=== PATIENT | male | born 1995 | race Caucasian/White ===

== ENCOUNTER 2019-06-16 19:22 | Emergency (ER) | payer OTHER ==
[~2019-06-16] VITALS: Ht 185.4 cm; Wt 113.4 kg
[2019-06-16 19:35] VITALS: BP 114/83
== END 2019-06-16 21:20 | disposition home or self-care (01) ==
LOC: ER 19:32
DX: Z11.1 Encounter for screening for respiratory tuberculosis (principal)
CPT/HCPCS: 71045-TC